=== PATIENT | male | born 1985 | race Two or more races ===

== ENCOUNTER 2024-10-20 19:25 | Emergency (ER) | payer BC, OTHER ==
[~2024-10-20] VITALS: Ht 182.9 cm; Wt 114.4 kg
[2024-10-20 19:27] VITALS: BP 161/79; PULSE 73; RESP 16; TEMP 97.9; O2SAT 96
--- NOTE | 2024-10-20 20:13 | ED.PDOC ---
Musculoskeletal HPI Comments HPI: Poor Historian. 39-year-old male presents to the emergency department for evaluation of two day history of right foot injury that happened this past Sunday while he was playing soccer. He said he stepped on his foot the kicked the ball and he heard something pop. He points to his right lateral aspect of the foot. Denies any other acute symptoms. Patient states having pain with ambulation. He went to urgent care today and had an x-ray but he was told that they can not read it. Patient decided to come to the ED for evaluation and further confirmation and clarity. Patient arrives in the ED with the posterior short-leg splint and crutches given to him by urgent care. Past Medical History: Sinusitis, Past Surgical History: Spinal tap REVIEW OF SYSTEMS: CONSTITUTIONAL: Denies acute: fever, diaphoresis, chills, generalized weakness. HEAD: Denies acute: headache, photophobia Eyes: Denies acute: Double vision, vision loss, eye pain, eye discharge. EARS: Denies acute: tinnitus, hearing loss, ear discharge, ear pain, THROAT: Denies acute: sore throat, swelling, difficulty swallowing , pain with swallowing, change in voice. NECK: Denies acute: neck pain, neck swelling, stiff neck. HEART: Denies acute : chest pain, palpitations, LUNGS: Denies acute: SOB, wheezing, cough, hemoptysis ABDOMEN: Denies acute: abdominal pain, Nausea, Vomiting, diarrhea, melena , hematemesis, hematochezia SKIN: Denies acute: rash, redness, lesions, itchiness. EXTREMITIES: Denies acute: calf pain, numbness, tingling, weakness, Denies acute: Low back pain. Neuro: Denies acute: focal neurological deficit, motor or sensory focal neurological deficit, tremors, seizure like activity, confusion, dizziness, change in mental status, loss of bowel or bladder function, cauda equina like symptoms. : Denies acute: dysuria, hematuria, flank pain, increase in urinary frequency. PSYCH: Denies acute: hallucination, suicidal ideation, homicidal ideation. PHYSICAL EXAM: General: -----mild---acute distress, awake and alert. Head: normocephalic, atraumatic. Neck: supple, trachea is midline, no swelling. Throat: Normal phonation. Eyes:, no erythema, no purulent discharge, no proptosis, no icterus. Heart: regular rate, regular rhythm, no significant murmur appreciated. Lungs: no apparent respiratory distress, Able to speak in full sentences. No wheezing, no rhonchi, no crackles. No stridors Clear to auscultation bilaterally. Abdomen: non tender to palpation, non distended, soft, no guarding, no rebound, + bowel sounds. Neuro: Awake, Alert, oriented to name, self, situation, follows commands GCS=15. Speech is normal. Skin: no petechia, no purpura, no cyanosis, non-pale, not jaundice. Lower extremities: --no - Pitting edema no deformity, no calf TTP. Patient is neurovascularly intact in the affected extremity. Pedal pulses palpable. Sensory and motor are present. Able to wiggle his toes. Focal tenderness to palpation over the right lateral aspect of the foot without obvious deformity or erythema. Minimal or all puffiness of the foot. No calf tenderness. No pain anywhere else in his extremity. Makes eye contact. moves all four extremities. Face: no apparent facial droop. Ambulating in the ED with crutches Pedal pulses are palpable. ED COURSE: DISCLAIMER: This medical document was created using an electronic medical record system with voice recognition software and computerized dictation system. Although this document has been carefully reviewed, there might still be some phonetic and typographical errors. Occasional wrong-word or "sound-alike" substitutions may have occurred due to the inherent limitations of voice recognition software. These areas are purely typographical due to imperfections of the software programs and do not reflect any compromise in the patient's medical care. Please read the chart carefully and recognize, using context, where these substitutions have occurred. Chief Complaint: Lower Extremity Time Seen by MD: 19:33 Allergies: Coded Allergies: NO KNOWN ALLERGIES (Unverified , 10/20/24) Information Source: Patient Mode of Arrival: Ambulatory Location: Right Was a procedure done? Was a procedure done?: No Differential Diagnosis EXT Differential Diagnosis: Fracture, Sprain, Dislocation, Contusion, Strain, Neurovascular injury X-Ray, Labs, Meds, VS Vital Signs Date Time Temp Pulse Resp B/P (MAP) Pulse Ox O2 Delivery O2 Flow Rate FiO2 10/20/24 19:27 97.9 73 16 161/[address] [address] Ph: [phone] DIAGNOSTIC IMAGING Diagnostic Imaging Report : [id number] Signed PATIENT: JORGE ALBARRAN ACCT: [id number] UNIT: [id number] : 1985 LOC: ER ROOM / BED: / AGE / SEX: 39 / M ADM STATUS: REG ER SERVICE 07 ORDERING PHYSICIAN: VANI DURHAM DO PROCEDURE(s): RFTCT - CT R FOOT WO CONTRAST REASON: fall, injury ORDER NUMBER(s): [id number], ACCESSION NUMBER(s): [id number] EXAM: CT CT R FOOT WO CONTRAST HISTORY: fall, injury COMPARISON: None TECHNIQUE: Noncontrast axial CT images of the right foot were performed. Sagittal and coronal reformatted images were obtained. This CT exam was performed using one or more of the following dose reduction techniques: Automated exposure control, adjustment of the mA and/or kV according to patient size, or use of iterative reconstruction technique. Radiation Dose Information: CT Dose: CTDI volume is 7.75 mGy. Dose-length product is 2.19 mGy*cm FINDINGS: There is no fracture or dislocation. No significant soft tissue abnormality. No radiopaque foreign body. The soft tissues are unremarkable. IMPRESSION: 1. No acute osseous abnormality ATED BY: RHIANNA BRADLEY MD DICTATED DATE/TIME: 10/20/242107 SIGNED BY: RHIANNA BRADLEY MD SIGNED DATE/TIME: 10/20/242107 CC: Time of 1ST Reevaluation: 20:03 Reevaluation 1ST: Unchanged Patient Education/Counseling: Need For Follow Up Family Education/Counseling: No Family Present Departure 1 Departure Time of Disposition: 20:09 Impression: Primary Impression: Right foot injury Disposition: 01 HOME / SELF CARE / HOMELESS Condition: Stable Additional Instructions: Additional instructions: You MUST follow-up with your primary care/family doctor in 1 to 2 days. If you are unable to see your primary care/family doctor, please return to our emergency room for re-assessment and re-evaluation in 1 to 2 days. Return to the emergency room here in our facility or to the nearest ER [facility] if your symptoms change or worsen. CONSULTATIONS: you MUST Follow-up for consultation as soon as possible with: -orthopedic doctor in 1-2 days. Please call for appointment. You MUST call the consultants office yourself to make an appointment. You may need to arrange that through your insurance and/or your primary/family doctor. If you are unable to see the application development consultant in 1 to 2 days, you must return to our emergency room (or any other ER of your choice) for re-assessment and re- evaluation. Adequate fluid hydration. Leg elevation. Continue wearing the splint and using crutches until you are evaluated by orthopedic doctor. Use [id number] Tylenol ibuprofen as needed with food for pain control. Below is a copy of your radiological report for follow up: [place] [address] Ph: [phone] DIAGNOSTIC IMAGING Diagnostic Imaging Report : [id number] Signed PATIENT: JORGE ALBARRAN ACCT: [id number] UNIT: [id number] : 1985 LOC: ER ROOM / BED: / AGE / SEX: 39 / M ADM STATUS: REG ER SERVICE 07 ORDERING PHYSICIAN: VANI DURHAM DO PROCEDURE(s): RFTCT - CT R FOOT WO CONTRAST REASON: fall, injury ORDER NUMBER(s): [id number], ACCESSION NUMBER(s): [id number] EXAM: CT CT R FOOT WO CONTRAST HISTORY: fall, injury COMPARISON: None TECHNIQUE: Noncontrast axial CT images of the right foot were performed. Sagittal and coronal reformatted images were obtained. This CT exam was performed using one or more of the following dose reduction techniques: Automated exposure control, adjustment of the mA and/or kV according to patient size, or use of iterative reconstruction technique. Radiation Dose Information: CT Dose: CTDI volume is 7.75 mGy. Dose-length product is 2.19 mGy*cm FINDINGS: There is no fracture or dislocation. No significant soft tissue abnormality. No radiopaque foreign body. The soft tissues are unremarkable. IMPRESSION: 1. No acute osseous abnormality ATED BY: RHIANNA BRADLEY MD DICTATED DATE/TIME: 10/20/242107 SIGNED BY: RHIANNA BRADLEY MD SIGNED DATE/TIME: 10/20/242107 CC: Discharged With: Self Critical Care Note Critical Care Time?: No I personally scribed for VANI DURHAM DO ([email or web address]) on 10/24/24 at 16:26. Electronically submitted by Bonifacio Correa ([email or web address]). VANI DURHAM DO Oct 20, 2024 20:13
--- NOTE | 2024-10-20 21:09 | DVH ---
EXAM: CT CT R FOOT WO CONTRAST HISTORY: fall, injury COMPARISON: None TECHNIQUE: Noncontrast axial CT images of the right foot were performed. Sagittal and coronal reforma tted images were obtained. This CT exam was performed using one or more of the following dose reducti on techniques: Automated exposure control, adjustment of the mA and/or kV according to patient size, or use of iterative reconstruction technique. Radiation Dose Information: CT Dose: CTDI volume is 7.7 5 mGy. Dose-length product is 2.19 mGy*cm FINDINGS: There is no fracture or dislocation. No significant soft tissue abnormality. No radiopaque foreign zuleima dy. The soft tissues are unremarkable. IMPRESSION: 1. No acute osseous abnormality
== END 2024-10-21 01:06 | disposition home or self-care (01) ==
LOC: ER 19:25
DX: S99.921A Unspecified injury of right foot, initial encounter (principal); X58.XXXA Exposure to other specified factors, initial encounter; Y93.66 Activity, soccer; Y92.89 Other specified places as the place of occurrence of the external cause; Y99.8 Other external cause status
CPT/HCPCS: 73700